=== PATIENT | male | born 1960 | race Caucasian/White ===

== ENCOUNTER 2017-01-12 06:12 | Emergency (ER) | payer BC ==
--- NOTE | ~2017-01-12 | ER ---
PATIENT'S NAME: STACY SHUKLA [facility] AGE: 56 Y [address] ROOM: [place] [address] LOCATION: [facility] ADMIT DATE: 01/12/2017 ER/Outpatient Report DISCHARGE DATE: 01/12/2017 FAMILY PHYSICIAN: Alfonso Ashley MD ATTENDING PHYSICIAN: Malinda Villanueva Time of Arrival: 0612 hours. Time of Evaluation: 0659 hours. IDENTIFICATION: A 56-year-old male. CHIEF COMPLAINT: "Can't sleep." HISTORY OF PRESENT ILLNESS: The patient woke up at 9:00 a.m. on Tuesday and "has not slept since then." He has had just a few cat naps throughout the day. Today, he developed a headache at 5:30 a.m. It is a typical headache for him, not unusual. He has no reason for his inability to sleep. He has had no increase in stress. No depression, no anxiety, no suicidal ideation. He has had some visual hallucinations where he is seeing people who are not there. He has no auditory hallucinations. This has never happened to him before. No illicit drug use. ALLERGIES: NO KNOWN DRUG ALLERGIES. CURRENT MEDICATIONS: 1. Losartan 100 mg b.i.d. 2. Amiloride 10 mg q.a.m. 3. Atenolol 50 mg q.a.m. 4. Amlodipine 10 mg daily. 5. Atorvastatin 80 mg at h.s. 6. Aspirin 81 mg. 7. Melatonin p.r.n. MEDICAL PROBLEMS: Hypertension; chronic kidney disease, the patient states he has a "nonfunctioning" right kidney; diabetes mellitus type 2. PRIOR SURGERIES: Renal artery stent. SOCIAL HISTORY: PATIENT'S NAME: STACY SHUKLA [facility] AGE: 56 Y [address] ROOM: [place] [address] LOCATION: [facility] ADMIT DATE: 01/12/2017 ER/Outpatient Report DISCHARGE DATE: 01/12/2017 FAMILY PHYSICIAN: Alfonso Ashley MD ATTENDING PHYSICIAN: Malinda Villanueva The patient lives in [place]. He is . Tobacco use, half pack per day for 39 years. Alcohol use, occasional. He did have a few beers Tuesday night but no more than what would be his usual. Drug use, the patient adamantly denies. Caffeine intake includes several soda pops per day plus multiple cups of coffee. FAMILY HISTORY: Mother secondary to heart disease. Father secondary to lung cancer. Two brothers secondary to pancreatic cancer. Sister secondary to ovarian cancer and liver cirrhosis. Daughter 5 years ago to suicide. REVIEW OF SYSTEMS: All systems reviewed and negative other than what is noted in the HPI. PHYSICAL EXAMINATION: VITAL SIGNS: Height 6 feet 0 inches, weight 94.5 kg, blood pressure 150/90, pulse 91, respirations 16, temperature 98, and saturations 97% on room air. GENERAL: A 56-year-old male, in no acute distress. HEENT: Head: Normocephalic, atraumatic. Ears: TMs translucent both ears. Eyes: Pupils equal and reactive to light and accommodation. Extraocular movements intact. Nose: Mucosa pink. No lesions or drainage. Mouth: No lesions. Pharynx benign. NECK: Supple. No lymphadenopathy. No nuchal rigidity. No carotid bruits. LUNGS: Clear to auscultation. Breath sounds are equal. HEART: Regular rate and rhythm. No murmur, rub, or gallop. ABDOMEN: Bowel sounds present. Soft, nondistended. No hepatosplenomegaly. No palpable masses. Nontender. SKIN: [place], warm, and dry. No lesions or rashes noted. NEURO: The patient is alert and oriented x4. Cranial nerves 2 through 12 grossly intact. Motor strength 5/5 throughout. Sensation is intact to light touch. No lower extremity edema. No calf tenderness. LABORATORY DATA AND X-RAYS: Urine drug screen positive for amphetamines. UA negative. TSH 1.510. Salicylate 4. Ammonia 18. Hemoglobin 17.1, hematocrit 47.2, platelets 300, white count 13.7 with a normal differential. Sodium 137; potassium 4.3; chloride 103; CO2 of 24; BUN 15; creatinine 1.6, which is stable; blood sugar 106. Liver enzymes normal. Alcohol level less than 0.010. Acetaminophen less than 2. CT scan, small vessel ischemic changes. No acute findings per Radiology. IMPRESSION: 1. Insomnia. 2. Visual hallucinations. PATIENT'S NAME: STACY SHUKLA [facility] AGE: 56 Y [address] ROOM: [place], [place] [address] LOCATION: [facility] ADMIT DATE: 01/12/2017 ER/Outpatient Report DISCHARGE DATE: 01/12/2017 FAMILY PHYSICIAN: Alfonso Ashley MD ATTENDING PHYSICIAN: Malinda Villanueva 3. Positive urine drug screen for amphetamines. PLAN: Discussed with Dr. Lynch, who is on-call for Dr. Ashley. The patient does not wish to stay in the hospital. He has no suicidal ideations. He has no threat to himself or others. His feels safe with him at home. Ambien 5 mg at bedtime p.r.n. insomnia, dispensed 5 with 0 refills. Decrease caffeine intake. No drugs or alcohol. Follow up with Dr. Ashley in 1 day, and his drug screen was sent for confirmatory testing for amphetamines. MALINDA VILLANUEVA MD CAR/modl /[id number] d: 01/13/17 0112 t: 01/16/17 1449, OUTPATIENT REPORT
[2017-01-12 07:23] LABS: BASOPHIL # 0.1 K/uL (0.0-0.2); BASOPHIL % 0.5 %; EOSINOPHIL # 0.1 K/uL (0.0-0.5); EOSINOPHIL % 0.7 %; HEMATOCRIT 47.2 % (37.0-53.0); HEMOGLOBIN 17.1 g/dL (12.0-17.0); IMMATURE GRANULOCYTE # 0.1 K/uL (0.0-0.3); IMMATURE GRANULOCYTE % 0.6 %; LYMPHOCYTE # 1.7 K/uL (0.8-4.0); LYMPHOCYTE % 12.6 %; MCH 33.5 pg (27.0-34.0); MCHC 36.2 gm/dL (32.0-36.5); MCV 92.5 fl (83.0-98.0); MONOCYTE # 1.1 K/uL (0.0-1.0); MONOCYTE % 8.1 %; MPV 8.9 fl (9.4-12.4); NEUTROPHIL # (ANC) 10.6 K/uL (1.4-9.0); NEUTROPHIL % 77.5 %; NRBC % 0 /100WBC (0-0.00); PLATELET COUNT 300 K/uL (150-450); RDW-CV 12.4 % (11.9-14.6); WBC 13.7 K/uL (4.0-11.0)
[2017-01-12 07:35] LABS: BILIRUBIN URINE NEGATIVE (NEGATIVE); BLOOD URINE 10 /UL (NEGATIVE); COLOR URINE YELLOW (YELLOW); GLUCOSE URINE NEGATIVE (NEGATIVE); KETONE URINE NEGATIVE (NEGATIVE); LEUKOCYTES URINE NEGATIVE /UL (NEGATIVE); NITRITE URINE NEGATIVE (NEGATIVE); PROTEIN URINE 30 mg/dL (NEGATIVE); TURBIDITY URINE CLEAR (CLEAR); UROBILINOGEN URINE NORMAL (NORMAL)
[2017-01-12 07:46] LABS: WBC URINE RARE #/HPF (NEGATIVE)
[2017-01-12 07:47] LABS: BACTERIA URINE NEGATIVE (NEGATIVE); EPITHELIAL URINE RARE #/HPF (NEGATIVE); RBC URINE NEGATIVE #/HPF (NEGATIVE)
[2017-01-12 07:57] LABS: BARBITURATE NEGATIVE (NEGATIVE); OPIATES NEGATIVE (NEGATIVE)
[2017-01-12 07:58] LABS: AMPHETAMINE POSITIVE (NEGATIVE); COCAINE NEGATIVE (NEGATIVE)
[2017-01-12 08:11] LABS: ALBUMIN 3.9 gm/dL (3.5-5.0); ALK PHOS 94 IU/L (33-138); ALT 23 IU/L (12-78); ANION GAP 14.3 (10.0-19.0); AST 19 IU/L (10-40); BLOOD UREA NITROGEN 15 mg/dL (6-24); CALCIUM 9.5 mg/dL (8.5-10.5); CHLORIDE 103 mMol/L (96-110); CO2 24 mMol/L (22-32); CREATININE 1.6 mg/dL (0.6-1.3); ESTIMATED GFR (MDRD EQUATION) 45; POTASSIUM 4.3 mMol/L (3.7-5.1); SODIUM 137 mMol/L (135-145); TOTAL BILIRUBIN 0.6 mg/dL (0.0-1.5); TOTAL PROTEIN 7.8 g/dL (6.0-8.4)
== END 2017-01-12 09:29 | disposition disaster alternative care site (69) ==
LOC: GMED 06:12
PROVIDERS: Family Medicine
DX: G47.00 Insomnia, unspecified (principal); R44.1 Visual hallucinations; I12.9 Hypertensive chronic kidney disease with stage 1 through stage 4 chronic kidney disease, or unspecified chronic kidney disease; E11.22 Type 2 diabetes mellitus with diabetic chronic kidney disease; N18.9 Chronic kidney disease, unspecified; F17.210 Nicotine dependence, cigarettes, uncomplicated; Z79.82 Long term (current) use of aspirin; Z79.899 Other long term (current) drug therapy; Z98.890 Other specified postprocedural states
CPT/HCPCS: G0480